=== PATIENT | female | born 1970 | race African-American/Black ===

== ENCOUNTER 2024-08-13 08:40 | Emergency (ER) | payer OTHER ==
[~2024-08-13] VITALS: Ht 165.1 cm; Wt 70.3 kg
[2024-08-13 08:47] VITALS: BP 156/97; PULSE 83; RESP 16; TEMP 98.2; O2SAT 100
[2024-08-13 10:09] LABS: BASOPHILS % 0.5 % (0.0-2.0); EOSINOPHILS % 5.3 % (0.0-5.0); HEMATOCRIT. 36.9 % (36.0-48.0); LYMPHOCYTES % 44.6 % (20.0-50.0); MEAN CORPUSCULAR HEMOGLOBIN 27.9 pg (28.0-32.0); MEAN CORPUSCULAR HGB CONC 32.4 g/dL (31.0-37.0); MEAN CORPUSCULAR VOLUME 85.9 fL (81.0-99.0); MEAN PLATELET VOLUME 10.6 fl (7.4-10.4); MONOCYTES % 10.1 % (2.0-8.0); NEUTROPHILS % 39.5 % (40.0-76.0); PLATELET 175 x1000/uL (130-400); RED CELL DISTRIBUTION WIDTH 14.6 % (11.6-14.6)
[2024-08-13 11:07] LABS: CHLORIDE 107 mEq/L (98-107); POTASSIUM 4.5 mEq/L (3.5-5.1); SODIUM 144 mEq/L (136-145)
[2024-08-13 11:08] LABS: CARBON DIOXIDE 28 mEq/L (21-32)
[2024-08-13 11:09] LABS: CALCIUM 9.7 mg/dL (8.7-10.4)
[2024-08-13 11:13] LABS: CREATININE 0.8 mg/dL (0.6-1.0); GLUCOSE 101 mg/dL (70-105); UREA NITROGEN BLOOD 17 mg/dL (9-23)
[2024-08-13 11:21] LABS: TROPONIN I HIGH SENSITIVITY < 4 ng/L (3.0-34)
[2024-08-13] MEDS: KETOROLAC 15MG/ML VIAL IM ONE (12:39)
[2024-08-13] MEDS: ASPIRIN 81MG TABLET PO ONE (12:39)
[2024-08-13] MEDS: LIDOCAINE 5% PATCH TOP SCH (12:39)
[2024-08-13 12:51] LABS: TROPONIN I HIGH SENSITIVITY < 4 ng/L (3.0-34)
== END 2024-08-13 13:15 | disposition home or self-care (01) ==
LOC: ER 09:30 → CANBEDREQ 15:05
DX: R09.1 Pleurisy (principal); E78.00 Pure hypercholesterolemia, unspecified; I10 Essential (primary) hypertension
CPT/HCPCS: 80048; 85025; 85379; 84484; 36415; 71045; 93005; 96372; 99285; Z7610; J1885